=== PATIENT | male | born 1990 | race Caucasian/White ===

== ENCOUNTER 2019-02-13 18:50 | Emergency (ER) | payer MEDICAID ==
[~2019-02-13] VITALS: Ht 165.1 cm; Wt 63.6 kg
[2019-02-13 19:32] VITALS: BP 110/79
[2019-02-13 19:34] LABS: BASOPHILS % (AUTO) 0.8 % (0.0-2.0); EOSINOPHILS % (AUTO) 2.9 % (1.0-6.0); HEMATOCRIT 41.6 % (41-53); HEMOGLOBIN 14.1 g/dL (13.5-17.5); LYMPHOCYTES # (AUTO) 2.4 K/uL (1.0-4.8); LYMPHOCYTES % (AUTO) 33.2 % (22.0-44.0); MEAN CORPUSCULAR HGB CONC 33.9 G/dL (31.0-37.0); MEAN CORPUSCULAR VOLUME 92 fL (80-100); MONOCYTES # (AUTO) 0.6 K/uL (0.1-1.0); MONOCYTES % (AUTO) 8.1 % (2.0-9.0); NEUTROPHILS # (AUTO) 3.9 K/uL (1.8-7.7); PLATELET COUNT (AUTO) 259 K/uL (150-450); RED BLOOD CELL COUNT(AUTO) 4.55 MIL/uL (4.50-5.90); RED CELL DISTRIBUTION WIDTH 13.5 % (11.5-14.5)
[2019-02-13 19:43] LABS: ANION GAP 7 mmol/L (8-16); CALCIUM, TOTAL 8.9 mg/dL (8.8-10.5); CARBON DIOXIDE 29 mmol/L (22-29); CHLORIDE 106 mmol/L (98-107); CREATININE 1.05 mg/dL (0.60-1.30); GLOMERULAR FILTR. RATE CALC > 60 mL/min (>60); GLUCOSE,RANDOM 97 mg/dL (70-110); POTASSIUM 4.2 mmol/L (3.5-5.1); SODIUM SERUM 142 mmol/L (136-145); UREA NITROGEN, BLOOD 12 mg/dL (7-18)
[2019-02-13 19:49] LABS: ALANINE AMINOTRANSFERASE 21 U/L (12-78); ALBUMIN 4.1 g/dL (3.4-5.0); ALKALINE PHOSPHATASE 73 U/L (46-116); ASPARTATE AMINOTRANSFERASE 17 U/L (15-37); BILIRUBIN,TOTAL 0.6 mg/dL (0.1-1.0); TOTAL PROTEIN, SERUM 7.1 g/dL (6.4-8.2)
[2019-02-13 19:51] LABS: APPEARANCE,URINE CLEAR (CLEAR); BILIRUBIN,URINE NEGATIVE (NEGATIVE); GLUCOSE, URINE (UA) NEGATIVE (NEGATIVE); KETONES,URINE NEGATIVE (NEGATIVE); LEUKOCYTE ESTERASE ,URINE NEGATIVE (NEGATIVE); NITRATE,URINE NEGATIVE (NEGATIVE); OCCULT BLOOD,URINE NEGATIVE (NEGATIVE); PH,URINE 7.5 (5.0-8.0); PROTEIN,URINE NEGATIVE (NEGATIVE)
[2019-02-13 20:02] LABS: AMPHET/METH SCREEN,URINE NEGATIVE (NEGATIVE); BARBITURATE SCREEN, URINE NEGATIVE (NEGATIVE); BENZODIAZEPINES SCREEN,URINE NEGATIVE (NEGATIVE); CANNABINOID SCREEN,URINE POSITIVE (NEGATIVE); COCAINE SCREEN,URINE NEGATIVE (NEGATIVE)
[2019-02-13 20:03] LABS: METHADONE SCREEN, URINE NEGATIVE (NEGATIVE); OPIATE SCREEN,URINE NEGATIVE (NEGATIVE); PHENCYCLIDINE SCREEN,URINE NEGATIVE (NEGATIVE)
[2019-02-13] MEDS: OLANZapine 5 MG TABLET PO ONE (20:04)
== END 2019-02-13 20:35 | disposition home or self-care (01) ==
LOC: EMS 18:50
DX: F20.9 Schizophrenia, unspecified (principal); Z91.14 Patient's other noncompliance with medication regimen; F12.90 Cannabis use, unspecified, uncomplicated; F17.210 Nicotine dependence, cigarettes, uncomplicated
CPT/HCPCS: 36415; 80053; 80307; 81003; 85025; 99284; 99406; G0480

== ENCOUNTER 2019-02-18 19:51 | Emergency (ER) | payer MEDICAID ==
[~2019-02-18] VITALS: Ht 165.1 cm; Wt 54.1 kg
[2019-02-18 22:10] LABS: BASOPHILS % (AUTO) 1.1 % (0.0-2.0); HEMATOCRIT 39.7 % (41-53); HEMOGLOBIN 13.3 g/dL (13.5-17.5); LYMPHOCYTES # (AUTO) 2.6 K/uL (1.0-4.8); LYMPHOCYTES % (AUTO) 38.8 % (22.0-44.0); MEAN CORPUSCULAR HEMOGLOBIN 31.5 pg (26.0-34.0); MEAN CORPUSCULAR HGB CONC 33.5 G/dL (31.0-37.0); MEAN CORPUSCULAR VOLUME 94 fL (80-100); MONOCYTES # (AUTO) 0.5 K/uL (0.1-1.0); MONOCYTES % (AUTO) 7.2 % (2.0-9.0); NEUTROPHILS # (AUTO) 3.3 K/uL (1.8-7.7); NEUTROPHILS % (AUTO) 49.9 % (40.0-70.0); PLATELET COUNT (AUTO) 242 K/uL (150-450); RED BLOOD CELL COUNT(AUTO) 4.22 MIL/uL (4.50-5.90); RED CELL DISTRIBUTION WIDTH 13.5 % (11.5-14.5)
[2019-02-18 22:19] LABS: AMPHET/METH SCREEN,URINE NEGATIVE (NEGATIVE); BARBITURATE SCREEN, URINE NEGATIVE (NEGATIVE); BENZODIAZEPINES SCREEN,URINE NEGATIVE (NEGATIVE); CANNABINOID SCREEN,URINE POSITIVE (NEGATIVE); COCAINE SCREEN,URINE NEGATIVE (NEGATIVE); METHADONE SCREEN, URINE NEGATIVE (NEGATIVE); OPIATE SCREEN,URINE NEGATIVE (NEGATIVE)
[2019-02-18 22:20] LABS: PHENCYCLIDINE SCREEN,URINE NEGATIVE (NEGATIVE)
[2019-02-18 22:38] LABS: ANION GAP 5 mmol/L (8-16); CALCIUM, TOTAL 8.8 mg/dL (8.8-10.5); CARBON DIOXIDE 31 mmol/L (22-29); CHLORIDE 107 mmol/L (98-107); CREATININE 0.85 mg/dL (0.60-1.30); GLOMERULAR FILTR. RATE CALC > 60 mL/min (>60); GLUCOSE,RANDOM 80 mg/dL (70-110); POTASSIUM 3.8 mmol/L (3.5-5.1); SODIUM SERUM 143 mmol/L (136-145); UREA NITROGEN, BLOOD 15 mg/dL (7-18)
[2019-02-18 22:44] LABS: ALANINE AMINOTRANSFERASE 20 U/L (12-78); ALBUMIN 3.8 g/dL (3.4-5.0); ALKALINE PHOSPHATASE 92 U/L (46-116); ASPARTATE AMINOTRANSFERASE 17 U/L (15-37); BILIRUBIN,TOTAL 0.2 mg/dL (0.1-1.0); TOTAL PROTEIN, SERUM 6.7 g/dL (6.4-8.2)
[2019-02-19] MEDS ORDERED: HALOPERIDOL 5 MG TABLET PO ONE (00:15)
[2019-02-19 00:40] VITALS: BP 110/72
== END 2019-02-19 01:09 | disposition home or self-care (01) ==
LOC: EMS 19:52
DX: F20.9 Schizophrenia, unspecified (principal); J45.909 Unspecified asthma, uncomplicated; F17.210 Nicotine dependence, cigarettes, uncomplicated; F12.90 Cannabis use, unspecified, uncomplicated; F11.90 Opioid use, unspecified, uncomplicated
CPT/HCPCS: 36415; 80053; 80307; 85025; 99284; G0480

== ENCOUNTER 2021-01-28 14:00 | Inpatient (IN) | payer MEDICAID ==
[~2021-01-28] VITALS: Ht 165.1 cm; Wt 69.4 kg
[2021-01-28 15:54] LABS: BASOPHILS % (AUTO) 0.5 % (0.0-2.0); EOSINOPHILS % (AUTO) 1.7 % (1.0-6.0); HEMATOCRIT 40.3 % (41-53); LYMPHOCYTES # (AUTO) 2.5 K/uL (1.0-4.8); LYMPHOCYTES % (AUTO) 31.1 % (22.0-44.0); MEAN CORPUSCULAR HEMOGLOBIN 32.5 pg (26.0-34.0); MEAN CORPUSCULAR HGB CONC 34.8 G/dL (31.0-37.0); MEAN CORPUSCULAR VOLUME 93 fL (80-100); MONOCYTES # (AUTO) 0.8 K/uL (0.1-1.0); MONOCYTES % (AUTO) 9.9 % (2.0-9.0); NEUTROPHILS # (AUTO) 4.6 K/uL (1.8-7.7); NEUTROPHILS % (AUTO) 56.8 % (40.0-70.0); PLATELET COUNT (AUTO) 206 K/uL (150-450); RED BLOOD CELL COUNT(AUTO) 4.31 MIL/uL (4.50-5.90); RED CELL DISTRIBUTION WIDTH 12.7 % (11.5-14.5)
[2021-01-28 16:08] LABS: ANION GAP 8 mmol/L (8-16); CARBON DIOXIDE 29 mmol/L (22-29); CHLORIDE 105 mmol/L (98-107); CREATININE 0.79 mg/dL (0.60-1.30); GLOMERULAR FILTR. RATE CALC > 60 mL/min (>60); GLUCOSE,RANDOM 111 mg/dL (70-110); POTASSIUM 3.6 mmol/L (3.5-5.1); SODIUM SERUM 142 mmol/L (136-145); UREA NITROGEN, BLOOD 14 mg/dL (7-18)
[2021-01-28 16:13] LABS: ALANINE AMINOTRANSFERASE 13 U/L (12-78); ALKALINE PHOSPHATASE 88 U/L (46-116); ASPARTATE AMINOTRANSFERASE 8 U/L (15-37); BILIRUBIN,TOTAL 0.3 mg/dL (0.1-1.0); TOTAL PROTEIN, SERUM 7.7 g/dL (6.4-8.2)
[2021-01-28] MEDS ORDERED: BENZ1TAB10 PO (18:10)
[2021-01-28] MEDS ORDERED: DIVA-80 PO (18:10)
[2021-01-28] MEDS ORDERED: PALI39DI IM (18:10)
[2021-01-28 18:46] LABS: COVID AG,FIA SOURCE NASOPHARYNGEAL
[2021-01-28 18:57] LABS: AMPHET/METH SCREEN,URINE NEGATIVE (NEGATIVE); BARBITURATE SCREEN, URINE NEGATIVE (NEGATIVE); BENZODIAZEPINES SCREEN,URINE NEGATIVE (NEGATIVE); CANNABINOID SCREEN,URINE POSITIVE (NEGATIVE); COCAINE SCREEN,URINE NEGATIVE (NEGATIVE); METHADONE SCREEN, URINE NEGATIVE (NEGATIVE); OPIATE SCREEN,URINE NEGATIVE (NEGATIVE); PHENCYCLIDINE SCREEN,URINE NEGATIVE (NEGATIVE)
[2021-01-28] MEDS ORDERED: HALOPERIDOL 5 MG TABLET PO PRN (19:00)
[2021-01-28 21:22] VITALS: BP 119/67
[2021-01-28] MEDS ORDERED: PNEUMOCOCCAL VACCINE POLYVALENT 0.5 ML VIAL [PPSV23] IM. ONE (21:45)
[2021-01-29 06:37] LABS: CHOL/HDL RATIO 2.6 (4.2-7.3)
[2021-01-29 08:00] VITALS: BP 109/68
[2021-01-29] MEDS ORDERED: CloNIDine HCL 0.1 MG TABLET PO PRN (08:15)
[2021-01-29] MEDS ORDERED: GuaiFENesin/D-METHORPHAN [SUGAR-FREE] 200-20MG/10 ML SYRUP UDCUP PO PRN (08:15)
[2021-01-29] MEDS ORDERED: PETROLATUM,WHITE 28 GM JELLY TP PRN (08:15)
[2021-01-29] MEDS ORDERED: ONDANSETRON HCL 4 MG TABLET PO PRN (08:15)
[2021-01-29] MEDS ORDERED: IBUPROFEN 400 MG TABLET PO PRN (08:15)
[2021-01-29] MEDS ORDERED: DOCUSATE SODIUM 100 MG CAPSULE PO PRN (08:15)
[2021-01-29] MEDS ORDERED: MAGNESIUM HYDROXIDE SUSPENSION 30 ML UDCUP PO PRN (08:15)
[2021-01-29] MEDS ORDERED: LOPERAMIDE HCL 2 MG CAPSULE PO PRN (08:15)
[2021-01-29] MEDS ORDERED: NICOTINE 14 MG/24 HOUR PATCH TD PRN (08:15)
[2021-01-29] MEDS ORDERED: ACETAMINOPHEN 325 MG TABLET PO PRN (08:15)
[2021-01-29] MEDS ORDERED: ALBUTEROL SULFATE HFA 90 MCG/PUFF 8 GM INHALER IH PRN (08:15)
[2021-01-29] MEDS ORDERED: MAG HYDROX/AL HYDROX/SIMETH ES 30 ML SUSPENSION UDCUP PO PRN (08:15)
[2021-01-29] MEDS: ASENAPINE 5 MG SUBLINGUAL TABLET SL SCH (15:46)
[2021-01-29] MEDS: DIVALPROEX SODIUM 500 MG ER TABLET PO SCH (15:47)
[2021-01-29 16:06] VITALS: BP 123/71
[2021-01-29] MEDS: BENZTROPINE MESYLATE 1 MG TABLET PO SCH (20:20)
[2021-01-30] MEDS: DIVALPROEX SODIUM 500 MG ER TABLET PO SCH ×2 (09:02→17:13)
[2021-01-30] MEDS: ASENAPINE 5 MG SUBLINGUAL TABLET SL SCH ×2 (09:02→17:13)
[2021-01-30 09:41] VITALS: BP 118/54
[2021-01-30 16:10] VITALS: BP 113/70
[2021-01-30] MEDS: BENZTROPINE MESYLATE 1 MG TABLET PO SCH (20:19)
[2021-01-30 23:30] VITALS: BP 114/70
[2021-01-30] MEDS: ZOLPIDEM TARTRATE 10 MG TABLET PO PRN (23:31)
[2021-01-31 08:42] VITALS: BP 123/76
[2021-01-31] MEDS: ASENAPINE 5 MG SUBLINGUAL TABLET SL SCH ×2 (10:10→16:24)
[2021-01-31] MEDS: DIVALPROEX SODIUM 500 MG ER TABLET PO SCH ×2 (10:10→16:24)
[2021-01-31 16:23] VITALS: BP 116/66
[2021-01-31] MEDS: ZOLPIDEM TARTRATE 10 MG TABLET PO PRN (20:36)
[2021-01-31] MEDS: BENZTROPINE MESYLATE 1 MG TABLET PO SCH (21:07)
[2021-01-31] MEDS: LORazepam 2 MG TABLET PO PRN (23:38)
[2021-02-01] MEDS: ASENAPINE 5 MG SUBLINGUAL TABLET SL SCH ×2 (08:14→16:03)
[2021-02-01] MEDS: DIVALPROEX SODIUM 500 MG ER TABLET PO SCH ×2 (08:14→16:03)
[2021-02-01] MEDS: LORazepam 2 MG TABLET PO PRN ×2 (11:56→23:33)
[2021-02-01 17:00] VITALS: BP 123/68
[2021-02-01] MEDS: ZOLPIDEM TARTRATE 10 MG TABLET PO PRN (20:32)
[2021-02-01] MEDS: BENZTROPINE MESYLATE 1 MG TABLET PO SCH (20:32)
[2021-02-02] MEDS: ASENAPINE 5 MG SUBLINGUAL TABLET SL SCH ×2 (11:01→16:42)
[2021-02-02] MEDS: DIVALPROEX SODIUM 500 MG ER TABLET PO SCH ×2 (11:02→16:42)
[2021-02-02 13:20] LABS: COVID AG,FIA SOURCE NASOPHARYNGEAL
[2021-02-02 16:09] VITALS: BP 113/63
[2021-02-02] MEDS: BENZTROPINE MESYLATE 1 MG TABLET PO SCH (19:58)
[2021-02-02] MEDS: ZOLPIDEM TARTRATE 10 MG TABLET PO PRN (19:58)
[2021-02-03 00:12] VITALS: BP 121/76
[2021-02-03] MEDS: LORazepam 2 MG TABLET PO PRN (00:12)
[2021-02-03] MEDS: DIVALPROEX SODIUM 500 MG ER TABLET PO SCH (08:07)
[2021-02-03] MEDS: ASENAPINE 5 MG SUBLINGUAL TABLET SL SCH (08:07)
[2021-02-03] MEDS ORDERED: ASEN5TAB8 SL (14:33)
[2021-02-03] MEDS ORDERED: DIVA-80 PO (14:33)
[2021-02-03] MEDS ORDERED: BENZ1TAB10 PO (14:34)
== END 2021-02-03 16:00 | disposition home or self-care (01) | DRG 750 ==
LOC: EMS 14:24 → 3EC 19:28
PROVIDERS: ADMIT Psychiatry & Neurology Child & Adolescent Psychiatry; ATTEND Psychiatry & Neurology Child & Adolescent Psychiatry
DX: F20.9 Schizophrenia, unspecified (principal); F11.90 Opioid use, unspecified, uncomplicated; Z20.822 Contact with and (suspected) exposure to COVID-19; F17.210 Nicotine dependence, cigarettes, uncomplicated; J45.909 Unspecified asthma, uncomplicated; F12.90 Cannabis use, unspecified, uncomplicated; R73.9 Hyperglycemia, unspecified
CPT/HCPCS: 80053; 80061; 85025; 87426; 99285; G0480

== ENCOUNTER 2021-05-20 14:18 | Inpatient (IN) | payer MEDICAID ==
[~2021-05-20] VITALS: Ht 165.1 cm; Wt 66.7 kg
[~2021-05-20 14:18] MED LIST: ASEN5TAB8 SL; BENZ1TAB10 PO; DIVA-80 PO
[2021-05-20] MEDS ORDERED: CHOL-35 PO (17:50)
[2021-05-20] MEDS ORDERED: TRAZ150 PO (17:50)
[2021-05-20] MEDS ORDERED: ASEN5TAB8 SL (17:50)
[2021-05-20] MEDS ORDERED: PALI234D IM (17:50)
[2021-05-20] MEDS ORDERED: BENZ1TAB10 PO (17:50)
[2021-05-20 18:01] LABS: BASOPHILS % (AUTO) 0.4 % (0.0-2.0); EOSINOPHILS % (AUTO) 0.7 % (1.0-6.0); HEMATOCRIT 41.5 % (41-53); HEMOGLOBIN 14.3 g/dL (13.5-17.5); LYMPHOCYTES # (AUTO) 2.6 K/uL (1.0-4.8); LYMPHOCYTES % (AUTO) 31.1 % (22.0-44.0); MEAN CORPUSCULAR HEMOGLOBIN 32.3 pg (26.0-34.0); MEAN CORPUSCULAR HGB CONC 34.4 G/dL (31.0-37.0); MEAN CORPUSCULAR VOLUME 94 fL (80-100); MONOCYTES # (AUTO) 0.6 K/uL (0.1-1.0); MONOCYTES % (AUTO) 7.1 % (2.0-9.0); NEUTROPHILS % (AUTO) 60.7 % (40.0-70.0); PLATELET COUNT (AUTO) 202 K/uL (150-450); RED BLOOD CELL COUNT(AUTO) 4.42 MIL/uL (4.50-5.90); RED CELL DISTRIBUTION WIDTH 13.2 % (11.5-14.5)
[2021-05-20 18:11] LABS: ANION GAP 7 mmol/L (8-16); CALCIUM, TOTAL 9.1 mg/dL (8.8-10.5); CARBON DIOXIDE 27 mmol/L (22-29); CHLORIDE 105 mmol/L (98-107); CREATININE 0.78 mg/dL (0.60-1.30); GLOMERULAR FILTR. RATE CALC > 60 mL/min (>60); GLUCOSE,RANDOM 102 mg/dL (70-110); SODIUM SERUM 139 mmol/L (136-145); UREA NITROGEN, BLOOD 16 mg/dL (7-18)
[2021-05-20 18:16] LABS: AMPHET/METH SCREEN,URINE NEGATIVE (NEGATIVE); BARBITURATE SCREEN, URINE NEGATIVE (NEGATIVE); BENZODIAZEPINES SCREEN,URINE NEGATIVE (NEGATIVE); CANNABINOID SCREEN,URINE POSITIVE (NEGATIVE); COCAINE SCREEN,URINE NEGATIVE (NEGATIVE); METHADONE SCREEN, URINE NEGATIVE (NEGATIVE); OPIATE SCREEN,URINE NEGATIVE (NEGATIVE); PHENCYCLIDINE SCREEN,URINE NEGATIVE (NEGATIVE)
[2021-05-20 18:16] LABS: ALANINE AMINOTRANSFERASE 14 U/L (12-78); ALBUMIN 4.1 g/dL (3.4-5.0); ALKALINE PHOSPHATASE 80 U/L (46-116); ASPARTATE AMINOTRANSFERASE 7 U/L (15-37); BILIRUBIN,TOTAL 0.4 mg/dL (0.1-1.0)
[2021-05-20 18:57] LABS: COVID AG,FIA SOURCE NASOPHARYNGEAL
[2021-05-21] MEDS: ZOLPIDEM TARTRATE 10 MG TABLET PO PRN ×2 (00:49→20:16)
[2021-05-21 00:57] VITALS: BP 128/88
[2021-05-21] MEDS ORDERED: PNEUMOCOCCAL VACCINE POLYVALENT 0.5 ML VIAL [PPSV23] IM. ONE (02:30)
[2021-05-21 06:47] LABS: CHOL/HDL RATIO 3.8 (4.2-7.3); CHOLESTEROL 153 mg/dL (131-200); HDL CHOLESTEROL 40 mg/dL (40-60); LDL CHOL (CALC.) 91 mg/dL (0-130); TRIGLYCERIDES 111 mg/dL (15-150)
[2021-05-21] MEDS ORDERED: DOCUSATE SODIUM 100 MG CAPSULE PO PRN (08:00)
[2021-05-21] MEDS ORDERED: CloNIDine HCL 0.1 MG TABLET PO PRN (08:00)
[2021-05-21] MEDS ORDERED: GuaiFENesin/D-METHORPHAN [SUGAR-FREE] 200-20MG/10 ML SYRUP UDCUP PO PRN (08:00)
[2021-05-21] MEDS ORDERED: IBUPROFEN 400 MG TABLET PO PRN (08:00)
[2021-05-21] MEDS ORDERED: MAG HYDROX/AL HYDROX/SIMETH ES 30 ML SUSPENSION UDCUP PO PRN (08:00)
[2021-05-21] MEDS ORDERED: MAGNESIUM HYDROXIDE SUSPENSION 30 ML UDCUP PO PRN (08:00)
[2021-05-21] MEDS ORDERED: ACETAMINOPHEN 325 MG TABLET PO PRN (08:00)
[2021-05-21] MEDS ORDERED: NICOTINE 14 MG/24 HOUR PATCH TD PRN (08:00)
[2021-05-21] MEDS ORDERED: ONDANSETRON HCL 4 MG TABLET PO PRN (08:00)
[2021-05-21] MEDS ORDERED: PETROLATUM,WHITE 28 GM JELLY TP PRN (08:00)
[2021-05-21] MEDS ORDERED: ALBUTEROL SULFATE HFA 90 MCG/PUFF 8 GM INHALER IH PRN (08:00)
[2021-05-21] MEDS ORDERED: LOPERAMIDE HCL 2 MG CAPSULE PO PRN (08:00)
[2021-05-21] MEDS: CHOLECALCIFEROL (VIT D3) 1,000 UNITS [25 MCG] TABLET PO SCH (09:08)
[2021-05-21 11:04] VITALS: BP 99/53
[2021-05-21] MEDS: LORazepam 2 MG TABLET PO PRN (15:48)
[2021-05-21] MEDS: HALOPERIDOL 5 MG TABLET PO PRN ×2 (15:48→17:34)
[2021-05-21 16:00] VITALS: BP 102/54
[2021-05-21] MEDS: BENZTROPINE MESYLATE 1 MG TABLET PO SCH (16:09)
[2021-05-21] MEDS: DIVALPROEX SODIUM 500 MG ER TABLET PO SCH (16:09)
[2021-05-21] MEDS: ASENAPINE 5 MG SUBLINGUAL TABLET SL SCH (17:06)
[2021-05-21 17:20] VITALS: BP 128/76
[2021-05-22 08:07] VITALS: BP 120/77
[2021-05-22] MEDS: BENZTROPINE MESYLATE 1 MG TABLET PO SCH ×2 (10:58→16:15)
[2021-05-22] MEDS: CHOLECALCIFEROL (VIT D3) 1,000 UNITS [25 MCG] TABLET PO SCH (10:58)
[2021-05-22] MEDS: DIVALPROEX SODIUM 500 MG ER TABLET PO SCH ×2 (10:58→16:15)
[2021-05-22] MEDS: ASENAPINE 5 MG SUBLINGUAL TABLET SL SCH ×2 (11:00→16:15)
[2021-05-22] MEDS: HALOPERIDOL 5 MG TABLET PO PRN (16:15)
[2021-05-22 17:20] VITALS: BP 128/77
[2021-05-22] MEDS: ZOLPIDEM TARTRATE 10 MG TABLET PO PRN (20:10)
[2021-05-23] MEDS: CHOLECALCIFEROL (VIT D3) 1,000 UNITS [25 MCG] TABLET PO SCH (10:00)
[2021-05-23] MEDS: DIVALPROEX SODIUM 500 MG ER TABLET PO SCH ×2 (10:00→16:17)
[2021-05-23] MEDS: BENZTROPINE MESYLATE 1 MG TABLET PO SCH ×2 (10:00→16:17)
[2021-05-23] MEDS: ASENAPINE 5 MG SUBLINGUAL TABLET SL SCH ×2 (10:00→16:17)
[2021-05-23 15:25] VITALS: BP 108/73
[2021-05-23 17:20] VITALS: BP 105/69
[2021-05-23] MEDS: ZOLPIDEM TARTRATE 10 MG TABLET PO PRN (20:07)
[2021-05-24] MEDS: CHOLECALCIFEROL (VIT D3) 1,000 UNITS [25 MCG] TABLET PO SCH (08:00)
[2021-05-24] MEDS: BENZTROPINE MESYLATE 1 MG TABLET PO SCH ×2 (08:01→16:17)
[2021-05-24] MEDS: DIVALPROEX SODIUM 500 MG ER TABLET PO SCH ×2 (08:01→16:15)
[2021-05-24] MEDS: ASENAPINE 5 MG SUBLINGUAL TABLET SL SCH ×2 (09:32→17:15)
[2021-05-24 09:54] VITALS: BP 99/55
[2021-05-24 16:00] VITALS: BP 101/60
[2021-05-24] MEDS: HALOPERIDOL 5 MG TABLET PO PRN (16:18)
[2021-05-24] MEDS: ZOLPIDEM TARTRATE 10 MG TABLET PO PRN (20:18)
[2021-05-24] MEDS: LORazepam 2 MG TABLET PO PRN (23:47)
[2021-05-25 00:25] VITALS: BP 105/66
[2021-05-25 08:18] VITALS: BP 107/58
[2021-05-25] MEDS: ASENAPINE 5 MG SUBLINGUAL TABLET SL SCH ×2 (10:36→16:06)
[2021-05-25] MEDS: BENZTROPINE MESYLATE 1 MG TABLET PO SCH ×2 (10:36→16:07)
[2021-05-25] MEDS: CHOLECALCIFEROL (VIT D3) 1,000 UNITS [25 MCG] TABLET PO SCH (10:36)
[2021-05-25] MEDS: DIVALPROEX SODIUM 500 MG ER TABLET PO SCH ×2 (10:36→16:07)
[2021-05-26] MEDS: ZOLPIDEM TARTRATE 10 MG TABLET PO PRN ×2 (01:29→22:33)
[2021-05-26 08:16] VITALS: BP 100/59
[2021-05-26] MEDS: ASENAPINE 5 MG SUBLINGUAL TABLET SL SCH ×2 (10:38→15:54)
[2021-05-26] MEDS: DIVALPROEX SODIUM 500 MG ER TABLET PO SCH ×2 (10:39→15:55)
[2021-05-26] MEDS: BENZTROPINE MESYLATE 1 MG TABLET PO SCH ×2 (10:39→15:55)
[2021-05-26] MEDS: CHOLECALCIFEROL (VIT D3) 1,000 UNITS [25 MCG] TABLET PO SCH (10:40)
[2021-05-26 17:01] VITALS: BP 103/69
[2021-05-27 01:11] VITALS: BP 106/72
[2021-05-27 08:00] VITALS: BP 94/66
[2021-05-27] MEDS: ASENAPINE 5 MG SUBLINGUAL TABLET SL SCH ×2 (09:47→16:13)
[2021-05-27] MEDS: DIVALPROEX SODIUM 500 MG ER TABLET PO SCH ×2 (09:47→16:13)
[2021-05-27] MEDS: CHOLECALCIFEROL (VIT D3) 1,000 UNITS [25 MCG] TABLET PO SCH (09:47)
[2021-05-27] MEDS: BENZTROPINE MESYLATE 1 MG TABLET PO SCH ×2 (09:47→16:13)
[2021-05-27 16:32] VITALS: BP 115/65
[2021-05-27] MEDS: ZOLPIDEM TARTRATE 10 MG TABLET PO PRN (20:08)
[2021-05-28 08:00] VITALS: BP 96/61
[2021-05-28] MEDS: ASENAPINE 5 MG SUBLINGUAL TABLET SL SCH (11:03)
[2021-05-28] MEDS: CHOLECALCIFEROL (VIT D3) 1,000 UNITS [25 MCG] TABLET PO SCH (11:03)
[2021-05-28] MEDS: DIVALPROEX SODIUM 500 MG ER TABLET PO SCH (11:03)
[2021-05-28] MEDS: BENZTROPINE MESYLATE 1 MG TABLET PO SCH (11:03)
== END 2021-05-28 12:45 | disposition home or self-care (01) | DRG 750 ==
LOC: EMS 14:40 → 3EC 21:23
PROVIDERS: ADMIT Psychiatry & Neurology Psychiatry; ATTEND Psychiatry & Neurology Psychiatry
DX: F20.0 Paranoid schizophrenia (principal); R45.850 Homicidal ideations; E56.9 Vitamin deficiency, unspecified; F11.90 Opioid use, unspecified, uncomplicated; Z20.822 Contact with and (suspected) exposure to COVID-19; F12.90 Cannabis use, unspecified, uncomplicated; F14.90 Cocaine use, unspecified, uncomplicated; J45.909 Unspecified asthma, uncomplicated; Z87.891 Personal history of nicotine dependence
CPT/HCPCS: 80053; 80061; 85025; 99285; G0480